=== PATIENT | female | born 1975 | race Hispanic/Latino ===

== ENCOUNTER 2020-10-24 10:01 | Emergency (ER) | payer MEDICARE ==
[~2020-10-24] VITALS: Ht 160 cm; Wt 89.8 kg
[2020-10-24 10:22] LABS: BASOPHILS % (AUTO) 0.8 % (0.0-5.0); EOSINOPHILS % (AUTO) 1.8 % (0.0-8.0); HEMATOCRIT 45.5 % (36-48); LYMPHOCYTES % (AUTO) 17.1 % (21.0-51.0); MEAN CORPUSCULAR HEMOGLOBIN 29.5 pg (27.0-33.0); MEAN CORPUSCULAR VOLUME 89.6 fL (79-99); MONOCYTES % (AUTO) 6.2 % (3.0-13.0); NEUTROPHILS % (AUTO) 73.7 % (40.0-77.0); PLATELET COUNT (AUTO) 397 K/uL (130-400); RED BLOOD CELL COUNT(AUTO) 5.08 MIL/uL (4.00-5.50); RED CELL DISTRIBUTION WIDTH 12.7 % (11.0-15.5)
[2020-10-24 10:32] LABS: CREATININE 0.8 mg/dL (0.5-1.5); POTASSIUM 3.6 mmol/L (3.5-5.1)
[2020-10-24 10:37] LABS: ALBUMIN 3.4 g/dL (3.5-5.0); BILIRUBIN,TOTAL 0.5 mg/dL (0.2-1.0); TOTAL PROTEIN, SERUM 7.8 g/dL (6.0-8.3)
[2020-10-24 11:00] VITALS: BP 132/78
[2020-10-24] MEDS ORDERED: KETOROLAC 30MG VIAL (30MG/ML) IV SCH (13:30)
[2020-10-24] MEDS ORDERED: LACT10SO9 PO (15:46)
[2020-10-24 16:18] VITALS: BP 126/74
[2020-10-24 16:20] VITALS: BP 128/74
== END 2020-10-24 16:24 | disposition home or self-care (01) ==
LOC: EDH 10:01
DX: G89.18 Other acute postprocedural pain (principal); R10.9 Unspecified abdominal pain; Z90.710 Acquired absence of both cervix and uterus
CPT/HCPCS: 36415; 74176; 80053; 85025; 96374; J1885

== ENCOUNTER 2021-07-04 19:05 | Emergency (ER) | payer MEDICARE ==
[~2021-07-04] VITALS: Ht 160 cm; Wt 87.1 kg
[~2021-07-04 19:05] MED LIST: LACT10SO9 PO
[2021-07-04 19:20] VITALS: BP 131/92
[2021-07-04] MEDS ORDERED: CEPH500B PO (19:23)
[2021-07-04] MEDS ORDERED: ACET-66 PO (19:23)
[2021-07-04] MEDS ORDERED: HYDROCODONE/ACETAMINOPHEN 5/325 MG TAB PO ONE (19:30)
[2021-07-04] MEDS ORDERED: CEPHALEXIN 500 MG CAPSULE PO ONE (19:30)
[2021-07-04] MEDS ORDERED: CEPHALEXIN 500 MG CAPSULE ONE (19:44)
[2021-07-04] MEDS ORDERED: HYDROCODONE/ACETAMINOPHEN 5/325 MG TAB ONE (19:44)
== END 2021-07-04 19:49 | disposition home or self-care (01) ==
LOC: EDH 19:05
DX: L72.9 Follicular cyst of the skin and subcutaneous tissue, unspecified (principal); F41.9 Anxiety disorder, unspecified; F32.A Depression, unspecified; G47.00 Insomnia, unspecified; Z98.890 Other specified postprocedural states